=== PATIENT | female | born 1980 | race African-American/Black ===

== ENCOUNTER 2017-03-20 06:46 | Emergency (ER) | payer SELFPAY ==
[2017-03-20] MEDS ORDERED: Naproxen 500 MG TAB ONE (07:47)
[2017-03-20] MEDS ORDERED: Triple Antibiotic Oint 1 GM Packet ONE (07:55)
--- NOTE | 2017-03-20 09:29 | RAD ---
RIGHT KNEE: Four views obtained. HISTORY: Injury to right knee. FINDINGS: Joint spaces are maintained. No evidence of fracture identified. No evidence of joint effusion. IMPRESSION: No acute finding. POS: [id number]
== END 2017-03-20 08:10 | disposition home or self-care (01) ==
LOC: MADERS 06:46
DX: S83.411A Sprain of medial collateral ligament of right knee, initial encounter (principal); W22.8XXA Striking against or struck by other objects, initial encounter

== ENCOUNTER 2017-08-18 13:15 | Emergency (ER) | payer OTHER, SELFPAY ==
[2017-08-18] MEDS ORDERED: Benzonatate 100 MG CAP ONE (13:59)
[2017-08-18] MEDS ORDERED: Ketorolac Tromethamine 60 MG/2 ML VIAL ONE (13:59)
[2017-08-18] MEDS ORDERED: Acetaminophen 500 MG TAB ONE (13:59)
== END 2017-08-18 14:24 | disposition home or self-care (01) ==
LOC: MADERS 13:15
DX: J10.1 Influenza due to other identified influenza virus with other respiratory manifestations (principal); Z87.891 Personal history of nicotine dependence
CPT/HCPCS: 87804; 96372; J1885